=== PATIENT | male | born 1980 | race Caucasian/White ===

== ENCOUNTER 2020-08-30 15:15 | Emergency (ER) | payer OTHER ==
[2020-08-30] MEDS ORDERED: Flexeril PO (17:10)
[2020-08-30] MEDS ORDERED: BACTROBAN OINT22 GM EXT (17:10)
[2020-08-30] MEDS ORDERED: IBUPROFEN600 MG PO (17:10)
== END 2020-08-30 18:15 | disposition home or self-care (01) ==
LOC: ER1 15:15
DX: S93.402A Sprain of unspecified ligament of left ankle, initial encounter (principal); S20.212A Contusion of left front wall of thorax, initial encounter; S50.312A Abrasion of left elbow, initial encounter; I10 Essential (primary) hypertension; Z88.8 Allergy status to other drugs, medicaments and biological substances; W01.0XXA Fall on same level from slipping, tripping and stumbling without subsequent striking against object, initial encounter; Y92.69 Other specified industrial and construction area as the place of occurrence of the external cause; Y99.0 Civilian activity done for income or pay
CPT/HCPCS: 71111; 73610; 99283